=== PATIENT | female | born 1945 | race Hispanic/Latino ===

== ENCOUNTER 2017-06-03 09:09 | Emergency (ER) | payer MEDICARE, OTHER ==
[2017-06-03 09:10] VITALS: BMI 29.1
[2017-06-03 09:23] VITALS: TEMP 98.3
[2017-06-03 09:41] VITALS: RESP 14; O2SAT 100
[2017-06-03 10:32] LABS: BASO # 0.1 K/uL (0.0-0.2); BASO % 0.7 % (0.0-2.0); EOS # 0.2 K/uL (0.0-0.7); EOS % 2.8 % (0.0-4.0); HEMOGLOBIN 10.1 g/dL (12.0-16.0); LYMPH # 2.9 K/uL (1.0-4.3); LYMPH % 37.7 % (20.0-40.0); MEAN CELL VOLUME 95.6 fl (81.0-99.0); MEAN CORPUSCULAR HEMOGLOBIN 33.2 pg (27.0-31.0); MEAN CORPUSCULAR HGB CONC 34.7 g/dL (33.0-37.0); MEAN PLATELET VOLUME 8.3 fl (7.2-11.7); MONO # 0.7 K/uL (0.0-0.8); MONO % 8.9 % (0.0-10.0); NEUT # 3.8 K/uL (1.8-7.0); NEUT % 49.9 % (50.0-75.0); NRBC % 0.1 % (0.0-0.0); RBC 3.04 Mil/uL (3.80-5.20); RED CELL DISTRIBUTION WIDTH 13.3 % (11.5-14.5); WHITE BLOOD COUNT 7.7 K/uL (4.8-10.8)
[2017-06-03 10:42] LABS: ALB/GLOB RATIO 1.2 (1.0-2.1); ALBUMIN 3.8 g/dL (3.5-5.0); CALCIUM 9.2 mg/dL (8.4-10.2)
--- NOTE | 2017-06-03 11:32 | ED PDOC ---
HPI: Psych/Substance Abuse Time Seen by Provider: 06/03/17 09:20 Chief Complaint (Nursing): Shortness Of Breath Chief Complaint (Provider): Anxiety History Per: Patient History/Exam Limitations: no limitations Onset/Duration Of Symptoms: Hrs (x 10) Current Symptoms Are (Timing): Still Present Additional History Per: Family Additional Complaint(s): Ann is a 71 y/o female with a history of anxiety for which she takes xanax who presents to the ED complaining of a panic attack that started last night. Patient states she was trying to sleep when she started to get anxious and sweating. She says she usually has a trigger but this time there was none. Denies fever or recent illness. Denies suicidal or homicidal ideation. PMD: Gt Champagne Past Medical History Reviewed: Historical Data, Nursing Documentation, Vital Signs Vital Signs: Last Vital Signs Temp 98.3 F 06/03/17 09:21 Pulse 68 06/03/17 09:33 Resp 14 06/03/17 09:33 BP 152/76 H 06/03/17 09:33 Pulse Ox 100 06/03/17 09:33 - Medical History PMH: Anxiety, Depression, HTN, Hypercholesterolemia, Hyperlipidemia Denies: HIV, Chronic Kidney Disease - Surgical History Surgical History: Appendectomy - Family History Family History: States: Unknown Family Hx - Social History Current smoker - smoking cessation education provided: Yes SMOKER/PACKS PER DAY:: 1 Alcohol: None Drugs: Denies - Home Medications Home Medications: Ambulatory Orders Medication Instructions Recorded ALPRAZolam [Xanax] 1 mg PO BID 06/03/17 Atorvastatin [Lipitor] 20 mg PO DAILY 06/03/17 Dexlansoprazole [Dexilant] 60 mg PO DAILY 06/03/17 Lisinopril [Zestril] 10 mg PO DAILY 06/03/17 Sertraline [Zoloft] 100 mg PO DAILY 06/03/17 - Allergies Allergies/Adverse Reactions: Allergies Allergy/AdvReac Type Severity Reaction Status Date / Time No Known Allergies Allergy Verified 10/05/13 01:32 Review of Systems ROS Statement: Except As Marked, All Systems Reviewed And Found Negative Constitutional: Negative for: Fever Psych: Positive for: Anxiety. Negative for: Suicidal ideation (no HI) Physical Exam - Reviewed Nursing Documentation Reviewed: Yes Vital Signs Reviewed: Yes - Physical Exam Appears: Positive for: Well, Non-toxic, No Acute Distress Skin: Positive for: Normal Color, Warm, Dry Neck: Positive for: Normal Cardiovascular/Chest: Positive for: Regular Rate, Rhythm. Negative for: Murmur Respiratory: Positive for: Normal Breath Sounds. Negative for: Wheezing, Respiratory Distress Gastrointestinal/Abdominal: Positive for: Normal Exam Extremity: Positive for: Normal ROM Neurologic/Psych: Positive for: Alert, Oriented - Laboratory Results Result Diagrams: 06/03/17 10:22 06/03/17 10:22 - ECG ECG Rhythm: Positive for: Normal ST Segment, Sinus Rhythm. Negative for: ST/T Changes Rate: 72 (bpm) O2 Sat by Pulse Oximetry: 100 (RA) Pulse Ox Interpretation: Normal Medical Decision Making Medical Decision Making: Time: 9:57 Initial Impression: Anxiety/panic attack rule out cardiac etiology Initial Plan: --CMP --CBC EKG NSR no signs of ischemia Time: 11:29 --Labs normal except mild anemia. pt aware of results. Will refer to crisis evaluation --Troponin --Crisis Evaluation Time: 12:16 --Patient was seen by crisis and is stable for discharge. Denied appointment for clinic. family states they will arrange their own outpatient follow up . Clinical Impression: Anxiety Clinical Condition: Improved Scribe Attestation: Documented by Bran Nova, acting as a scribe for Ledy Rodriguez MD Provider Scribe Attestation: All medical record entries made by the Scribe were at my direction and personally dictated by me. I have reviewed the chart and agree that the record accurately reflects my personal performance of the history, physical exam, medical decision making, and the department course for this patient. I have also personally directed, reviewed, and agree with the discharge instructions and disposition. Disposition - Clinical Impression Clinical Impression: Anxiety - Patient ED Disposition Is Patient to be Admitted: No Counseled Patient/Family Regarding: Studies Performed, Diagnosis, Need For Followup - Disposition Disposition: Routine/Home Disposition Time: 12:16 Condition: IMPROVED Additional Instructions: follow up with outpatient psychiatry and with your primary doctor return to the ED with any worsening or concerning symptoms Instructions: Anxiety, Adult (DC) Forms: [employer] (Sammarinese)
[2017-06-03 11:35] VITALS: PULSE 72
[2017-06-03 12:50] VITALS: BP 138/79
== END 2017-06-03 12:43 | disposition home or self-care (01) ==
LOC: H.ER 09:09
DX: F41.9 Anxiety disorder, unspecified (principal); D64.9 Anemia, unspecified; E78.00 Pure hypercholesterolemia, unspecified; F17.210 Nicotine dependence, cigarettes, uncomplicated; F32.9 Major depressive disorder, single episode, unspecified; F41.0 Panic disorder [episodic paroxysmal anxiety]; I10 Essential (primary) hypertension

== ENCOUNTER 2017-06-23 21:20 | Emergency (ER) | payer MEDICARE, OTHER ==
[2017-06-23 21:20] VITALS: BMI 29.1
[2017-06-23 21:27] VITALS: TEMP 99.1
--- NOTE | 2017-06-23 21:37 | ED PDOC ---
HPI: Psych/Substance Abuse Time Seen by Provider: 06/23/17 21:22 Chief Complaint (Nursing): Pain, Chronic Chief Complaint (Provider): Anxiety, Shaking History Per: Patient, Family History/Exam Limitations: no limitations Onset/Duration Of Symptoms: Hrs Current Symptoms Are (Timing): Still Present Modifying Factor(s): None Severity: None Additional Complaint(s): Hx of anxiety, depression, HTN, HLD presenting with tremors, shaking since 7PM. Patient states she was balancing her bills, went to take out laundry from washing machine, states she bent down slightly and upon picking up the laundry felt a pain in the back of her neck. States she started to become nervous, anxious, and started shaking uncontrollably. States she went to lie down, but symptoms persisted. States she's had anxiety attacks before and this is worse. States she doesn't know her triggers for her panic attacks sometimes and they come on at random. States pain has since resolved. Denies chest pain, shortness of breath, palpitations, dizziness. Patient tearful, anxious on interview and history. Past Medical History Reviewed: Historical Data, Nursing Documentation, Vital Signs Vital Signs: Last Vital Signs Temp 99.1 F 06/23/17 21:22 Pulse 90 06/23/17 21:22 Resp 18 06/23/17 21:22 BP 110/55 L 06/23/17 21:22 Pulse Ox 100 06/23/17 21:22 - Medical History PMH: Anxiety, Depression, HTN, Hypercholesterolemia, Hyperlipidemia Denies: HIV, Chronic Kidney Disease - Surgical History Surgical History: Appendectomy - Family History Family History: States: Unknown Family Hx - Home Medications Home Medications: Ambulatory Orders Medication Instructions Recorded ALPRAZolam [Xanax] 1 mg PO BID 06/03/17 Atorvastatin [Lipitor] 20 mg PO DAILY 06/03/17 Dexlansoprazole [Dexilant] 60 mg PO DAILY 06/03/17 Lisinopril [Zestril] 10 mg PO DAILY 06/03/17 Sertraline [Zoloft] 100 mg PO DAILY 06/03/17 - Allergies Allergies/Adverse Reactions: Allergies Allergy/AdvReac Type Severity Reaction Status Date / Time No Known Allergies Allergy Verified 10/05/13 01:32 Review of Systems ROS Statement: Except As Marked, All Systems Reviewed And Found Negative Respiratory: Negative for: Cough, Shortness of Breath Psych: Negative for: Anxiety, Depression Physical Exam - Reviewed Nursing Documentation Reviewed: Yes Vital Signs Reviewed: Yes - Physical Exam Appears: Positive for: Non-toxic, No Acute Distress. Negative for: Well ( Tearful, anxious, shaking) Head Exam: Positive for: ATRAUMATIC, NORMAL INSPECTION, NORMOCEPHALIC Skin: Positive for: Normal Color, Warm, DRY Eye Exam: Positive for: EOMI, Normal appearance, PERRL ENT: Positive for: Normal ENT Inspection Neck: Positive for: Normal, Painless ROM Cardiovascular/Chest: Positive for: Regular Rate, Rhythm, Murmur (holosytolic ( patient states it's not new)) Respiratory: Positive for: CNT, Normal Breath Sounds Gastrointestinal/Abdominal: Positive for: Normal Exam, Soft Back: Positive for: Normal Inspection Extremity: Positive for: Normal ROM Neurologic/Psych: Positive for: Alert, project construction assistant manager II-XII, Oriented, Mood/Affect ( Anxious, tearful). Negative for: Motor/Sensory Deficits, Facial Droop - Laboratory Results Result Diagrams: 06/23/17 21:49 06/23/17 21:49 - ECG ECG: Positive for: Interpreted By Me, Viewed By Me ECG Rhythm: Positive for: Normal QRS, Normal ST Segment, Sinus Rhythm O2 Sat by Pulse Oximetry: 100 Pulse Ox Interpretation: Normal Medical Decision Making Medical Decision MakinPM A/P: Hx of anxiety, depression, HTN, HLD presenting with shaking, tearfulness -likely patient suffering anxiety attack, also possibly electrolytes, cardiac, BP related- although very unlikley -given risk factors, will get ekg, fs, place patient on radiation monitor -will also check patient's electrolyte, CBC, and troponin for risk stratification purposes 1120PM -Patient re-evaluated at bedside, states she feels much better -vitals normal, labs wnl -advised patient to followup with Dr. Malloy in 2 - 3 days -return precautions given Disposition - Clinical Impression Clinical Impression: Anxiety - Disposition Referrals: Gt Champagne MD [Family Provider] - Disposition: Routine/Home Disposition Time: 23:24 Condition: IMPROVED Additional Instructions: Please followup with your primary care provider in 2 - 3 days for a checkup. Instructions: Anxiety, Adult (DC) Forms: [employer] (Khmer)
[2017-06-23 22:12] LABS: HEMOGLOBIN 10.5 g/dL (12.0-16.0); MEAN CELL VOLUME 96.2 fl (81.0-99.0); MEAN CORPUSCULAR HEMOGLOBIN 32.4 pg (27.0-31.0); MEAN CORPUSCULAR HGB CONC 33.7 g/dL (33.0-37.0); RBC 3.23 Mil/uL (3.80-5.20); RED CELL DISTRIBUTION WIDTH 13.4 % (11.5-14.5); WHITE BLOOD COUNT 9.9 K/uL (4.8-10.8)
[2017-06-23 22:48] LABS: BLOOD UREA NITROGEN 11 mg/dl (7-17); CALCIUM 9.2 mg/dL (8.4-10.2); GFR AFRICAN-AMERICAN > 60; GFR NON-AFRICAN AMERICAN 55
[2017-06-24 00:35] VITALS: RESP 16
[2017-06-24 00:39] VITALS: BP 102/62; PULSE 102; O2SAT 99
--- NOTE | 2017-06-25 12:28 | CARD ---
APPROVED REPORT EKG Measurement Heart [id number] <Conclusion> Normal sinus rhythm Normal ECG
== END 2017-06-24 00:37 | disposition home or self-care (01) ==
LOC: H.ER 21:20
DX: F41.0 Panic disorder [episodic paroxysmal anxiety] (principal); R42 Dizziness and giddiness; E78.00 Pure hypercholesterolemia, unspecified; F32.9 Major depressive disorder, single episode, unspecified; I10 Essential (primary) hypertension
CPT/HCPCS: 80048; 82948; 84484; 85027; 93005; 96374; 99284; J2060